=== PATIENT | female | born 1990 | race Caucasian/White ===

== ENCOUNTER 2020-05-10 05:16 | Day surgery (SDC) | payer BC ==
[2020-05-02 12:52] LABS: BASOPHILS % (AUTO) 0.5 % (0-1); EOSINOPHILS # (AUTO) 0.1 X10'3 (0-0.9); EOSINOPHILS % (AUTO) 1.1 % (0-6); LYMPHOCYTES # (AUTO) 2.1 X10'3 (1.1-4.8); LYMPHOCYTES % (AUTO) 25.1 % (21-51); MEAN CORPUSCULAR HEMOGLOBIN 28.5 PG (27.0-31.0); MEAN CORPUSCULAR HGB CONC 33.8 g/dL (33.0-36.5); MEAN CORPUSCULAR VOLUME 84.3 FL (78-98); MEAN PLATELET VOLUME 7.6 FL (7.4-10.4); MONOCYTES # (AUTO) 0.5 X10'3 (0-0.9); MONOCYTES % (AUTO) 5.7 % (2-12); NEUTROPHILS # (AUTO) 5.7 X10'3 (1.8-7.7); NEUTROPHILS % (AUTO) 67.6 % (42-75); PRE OP HEMATOCRIT 42.3 % (35.0-45.0); PRE OP HEMOGLOBIN 14.3 g/dL (12.0-16.0); PRE OP PLATELET COUNT 309 X10'3 (140-440); RED BLOOD COUNT 5.01 X10'6 (4.20-5.60); RED CELL DISTRIBUTION WIDTH 15.5 % (11.5-14.5)
[2020-05-02 13:11] LABS: ALBUMIN 3.7 G/DL (3.4-5.0); ALBUMIN/GLOBULIN RATIO 0.9 (1.1-1.5); ALKALINE PHOSPHATASE 86 IU/L (46-116); BLOOD UREA NITROGEN 16 MG/DL (7-18); BUN/CREATININE RATIO 23.2 (6.6-38.0); CALCIUM 8.8 MG/DL (8.5-10.1); CHLORIDE 106 MMOL/L (99-107); CREATININE 0.69 MG/DL (0.40-0.90); PRE OP ALT 33 U/L (30-65); PRE OP ANION GAP 10 (8-16); PRE OP AST 14 U/L (10-37); PRE OP BILIRUB, TOTAL 0.3 MG/DL (0.0-1.0); PRE OP POTASSIUM 3.7 MMOL/L (3.4-5.1); PRE OP SODIUM 143 MMOL/L (135-145); TOTAL CARBON DIOXIDE 27.1 MMOL/L (24-32); TOTAL PROTEIN 7.6 G/DL (6.4-8.2); eGFR > 90 ML/MIN
[2020-05-02 13:42] LABS: HCG SERUM QL NEGATIVE; PRE OP GLUCOSE 100 MG/DL (70-104)
[~2020-05-10] VITALS: Ht 162.6 cm; Wt 102.5 kg
[2020-05-10] VITALS (7 sets, daily range): BP systolic 117–150; BP diastolic 62–108
[~2020-05-10 05:16] MED LIST: ALBU8HFA PO; VALA500T41 PO; ringers solution, lacted 1,000 ML IV SCH
[2020-05-10] MEDS ORDERED: famotidine 20mg tablet PO ONE (05:30)
[2020-05-10] MEDS ORDERED: albuterol 2.5 MG/3 ML nebule NEB ONE (05:30)
[2020-05-10] MEDS ORDERED: cefazolin/dext.iso 2gm/100ml 100 ML IV ONE (05:30)
[2020-05-10] MEDS ORDERED: LIDOcaine 1% (10mg/ml) 2ml vial ONE (05:50)
[2020-05-10] MEDS ORDERED: BUPIVAcaine/PF 2.5mg/ml (0.25%) 10ml vial ONE (06:59)
[2020-05-10] MEDS ORDERED: epiNEPHrine 1 mg/ml inj ONE (06:59)
[2020-05-10] MEDS ORDERED: ringers solution, lacted 1,000 ML IV SCH ×2 (07:25)
[2020-05-10] MEDS ORDERED: acetaminophen 1,000mg/100ml IV 100 ML IV PRN ×2 (07:25)
[2020-05-10] MEDS ORDERED: meperidine/PF 25mg/ml syringe IV PRN ×6 (07:25)
[2020-05-10] MEDS ORDERED: ondansetron/PF 4mg/2ml inj IV PRN ×2 (07:25)
[2020-05-10] MEDS ORDERED: proCHLORperazine 10 MG/2 ml inj IV PRN ×2 (07:25)
[2020-05-10] MEDS ORDERED: morphine 4 MG/ML inj SYRINge IV PRN ×2 (07:25)
[2020-05-10] MEDS ORDERED: morphine 2 MG/ML inj. syringe IV PRN ×2 (07:25)
[2020-05-10] MEDS ORDERED: fentaNYL/PF 50MCG/1 ML 2ML syringe ONE (07:28)
[2020-05-10] MEDS ORDERED: midazolam 1 mg/ML 2ml injection ONE (07:29)
[2020-05-10] MEDS ORDERED: LIDOcaine 2% 5ml jelly ONE (07:32)
[2020-05-10] MEDS ORDERED: rocuronium 10mg/ml inj IV ONE (07:42)
[2020-05-10] MEDS ORDERED: propofol inj 20 ML IV ONE (07:42)
[2020-05-10] MEDS ORDERED: LIDOcaine 2% (20mg/ml) 5ml vial ONE (07:42)
[2020-05-10] MEDS ORDERED: neostigmine methylsulfate 1 MG/ML 10ml vial ONE (08:06)
[2020-05-10] MEDS ORDERED: glycopyrrolate 0.2mg/ml inj ONE (08:06)
--- NOTE | 2020-05-10 08:20 | NUR ---
Received from OR via [facility], accompanied by Anesthesiologist DR NORTH and report given by Anesthesiologist. PATIENT WAKING UP-CRYING, NAUSEATED, PAINFUL, V/S WNL, NEUROVASCULAR CHECKS INTACT, 20G PIV LUE, SCD ON, ONE BANDAID TO LAP SITE OF ABDOMEN AND WITH PERIPAD WITH SCANT DRAINAGE CDI. ZOFRAN GIVEN UPON ARRIVAL.
--- NOTE | 2020-05-10 09:06 | NUR ---
GIVEN DEMEROL AND TYLENOL FOR PAIN, PT CALMER NOW, ABLE TO TALK AND TAKE ICE CHIPS-NAUSEA RESOLVED, PAIN BETTER CONTROLLED 08/17 - GETTING DRESSED NOW.
--- NOTE | 2020-05-10 09:10 | NUR ---
PATIENT A&OX4, PAIN BETTER-PT MOVING AND GETTING DRESSED, V/S WNL, NEUROVASCULAR CHECKS INTACT, 20G PIV LUE D/C WITH NO COMPLICATIONS OBSERVED, SCD OFF, 1 BANDAID TO LAP SITE OF ABDOMEN-CDI. FRESH RICCARDO PAD GIVEN TO PATIENT. HAVE REVIEWED D/C INSTRUCTIONS WITH PATIENT AND FAMILY AND THEY HAVE VERBALIZED UNDERSTANDING. PATIENT D/C HOME WITH FAMILY TO TRANSPORT AND ALL BELONGINGS..
== END 2020-05-10 09:10 | disposition home or self-care (01) ==
LOC: PAS 05:16
PROVIDERS: ATTEND Obstetrics & Gynecology
DX: Z30.2 Encounter for sterilization (principal); J45.909 Unspecified asthma, uncomplicated; Z98.890 Other specified postprocedural states; Z88.8 Allergy status to other drugs, medicaments and biological substances; Z91.012 Allergy to eggs
CPT/HCPCS: 36415; 58670; 80053; 82948; 84703; 85025; J0131; J0171; J2001; J2175; J2250; J2405; J2704; J2710; J3010; J3490; J7120; U0003; A4618

== ENCOUNTER 2021-08-07 12:39 | Emergency (ER) | payer BC, OTHER ==
[~2021-08-07 12:39] MED LIST changes: -ringers solution, lacted 1,000 ML IV SCH
[2021-08-07 13:15] VITALS: BP 150/102
[2021-08-07] MEDS ORDERED: ketorolac trometh. 30mg/ml inj. IV ONE (15:15)
[2021-08-07] MEDS ORDERED: metoclopramide 5 mg/ml inj IV ONE (15:15)
[2021-08-07] MEDS ORDERED: normal saline 1000ML IV soln IVB ONE (15:15)
== END 2021-08-07 17:04 | disposition home or self-care (01) ==
LOC: ER 12:39
DX: S09.90XA Unspecified injury of head, initial encounter (principal); R51.9 Headache, unspecified; R11.0 Nausea; Z85.9 Personal history of malignant neoplasm, unspecified; Z91.012 Allergy to eggs; Z88.8 Allergy status to other drugs, medicaments and biological substances; Z79.2 Long term (current) use of antibiotics; W18.40XA Slipping, tripping and stumbling without falling, unspecified, initial encounter; Y93.89 Activity, other specified; Y92.89 Other specified places as the place of occurrence of the external cause; Y99.8 Other external cause status
CPT/HCPCS: 96360; 99284; J7030